=== PATIENT | female | born 1995 | race Caucasian/White ===

== ENCOUNTER 2024-03-16 20:03 | Emergency (ER) | payer BC ==
[2024-03-16 21:07] VITALS: RESP 16; TEMP 97.5
--- NOTE | 2024-03-16 22:33 | ED ---
General Adult HPI - General Chief complaint: Extremity Injury, Lower Stated complaint: R Ankle Injury Time Seen by Provider: 03/16/24 20:54 Source: patient, RN notes reviewed Mode of arrival: ambulatory Limitations: no limitations - History of Present Illness Initial comments: 29-year-old female presents to the emergency department for evaluation of right ankle injury. Patient states that she was carrying a headboard down a set of stairs. She notes that she started to lose her balance causing her to walk down the stairs faster. She states that she planted her right foot onto the ground forcefully and noticed pain in her right ankle. She states that since then it has been painful to weight-bear. She notes some swelling to the area. She denies numbness, tingling. - Related Data Home Medications Medication Instructions Recorded Confirmed medroxyPROGESTERone [Depo-Provera] 150 mg IM Q90D 05/04/16 05/04/16 Previous Rx's Medication Instructions Recorded Ibuprofen [Motrin] 600 mg PO Q6HR PRN #40 day 05/04/16 Allergies Allergy/AdvReac Type Severity Reaction Status Date / Time Sulfa (Sulfonamide Allergy Unknown Verified 03/16/24 20:34 Antibiotics) Childhood Review of Systems ROS Statement: Those systems with pertinent positive or pertinent negative responses have been documented in the HPI. ROS Other: All systems not noted in ROS Statement are negative. Past Medical History Past Medical History: No Reported History History of Any Multi-Drug Resistant Organisms: None Reported Past Surgical History: Tonsillectomy Past Psychological History: Anxiety Smoking Status: Current every day smoker Past Alcohol Use History: Occasional Past Drug Use History: Marijuana General Exam Limitations: no limitations General appearance: alert, in no apparent distress Head exam: Present: atraumatic, normocephalic, normal inspection Eye exam: Present: normal appearance, PERRL, EOMI. Absent: scleral icterus, conjunctival injection, periorbital swelling ENT exam: Present: normal exam, mucous membranes moist Cardiovascular Exam: Present: regular rate, normal rhythm, normal heart sounds. Absent: systolic murmur, diastolic murmur, rubs, gallop, clicks Extremities exam: Present: normal inspection, full ROM, tenderness (A posterior to the lateral malleolus), normal capillary refill, other (DP and PT pulses 2+). Absent: pedal edema, joint swelling, calf tenderness Neurological exam: Present: alert, oriented X3 Psychiatric exam: Present: normal affect, normal mood Skin exam: Present: warm, dry, intact, normal color. Absent: rash Course Vital Signs 03/16/24 03/16/24 20:34 22:48 Temperature 97.5 F L Pulse Rate 91 70 Respiratory 16 16 Rate Blood Pressure 146/88 115/64 O2 Sat by Pulse 99 98 Oximetry Medical Decision Making - Medical Decision Making Was pt. sent in by a medical professional or institution (, [facility], IM[employer] [facility]OCIATE, urgent care, hospital, or [place] [facility] facility...) When possible be specific @ -No Did you speak to anyone other than the patient for history (EMS, parent, family, police, friend...)? What history was obtained from this source @ -No Did you review nursing and triage notes (agree or disagree)? Why? @ -I reviewed and agree with nursing and triage notes Were old charts reviewed (outside hosp., previous admission, EMS record, old EKG, old radiological studies, urgent care reports/EKG's, [place] [facility] facility records)? Report findings @ -No old charts were reviewed Differential Diagnosis (chest pain, altered mental status, abdominal pain women, abdominal pain men, vaginal bleeding, weakness, fever, dyspnea, syncope, headache, dizziness, GI bleed, back pain, seizure, CVA, palpatations, mental health, musculoskeletal)? @ -Differential Musculoskeletal Muscular strain, contusion, ligament sprain, fracture, arthritis, septic arthritis, bursitis, cellulitis, muscle spasm, nerve compression, DVT, arterial occlusion, herpes zoster, electrolyte abnormality, tumor.... This is not meant to be in all inclusive list EKG interpreted by me (3pts min.). @ -None X-rays interpreted by me (1pt min.). @ -X-rays of the right foot and ankle show no evidence of acute fracture CT interpreted by me (1pt min.). @ -None done U/S interpreted by me (1pt. min.). @ -None done What testing was considered but not performed or refused? (CT, X-rays, U/S, labs)? Why? @ -None What meds were considered but not given or refused? Why? @ -None Did you discuss the management of the patient with other professionals (professionals i.e. , [facility], IM[employer] ASSOCIATE, lab, RT, psych nurse, social media specialist, residential support specialist, teacher, chief communications officer, immigration case worker)? Give summary @ -No Was smoking cessation discussed for >3mins.? @ -No Was critical care preformed (if so, how long)? @ -No Were there social determinants of health that impacted care today? How? (Homelessness, low income, unemployed, alcoholism, drug addiction, transportation, low edu. Level, literacy, decrease access to med. care, alf, rehab)? @ -No Was there de-escalation of care discussed even if they declined (Discuss DNR or withdrawal of care, Hospice)? DNR status @ -No What co-morbidities impacted this encounter? (DM, HTN, Smoking, COPD, CAD, Cancer, CVA, ARF, Chemo, Hep., AIDS, mental health diagnosis, sleep apnea, morbid obesity)? @ -None Was patient admitted / discharged? Hospital course, mention meds given and route, prescriptions, significant lab abnormalities, going to OR and other pertinent info. @ -Discharge. Patient presented to the emergency department for evaluation of right ankle injury. Patient underwent x-rays. There was significant delay in x-ray reports. X-ray was therefore reviewed by myself and my attending, Dr. Ayala, would not appreciate any acute fractures. Patient was placed in an Aircast and provided crutches for ankle sprain. Discussed with patient that she will be called if the radiologist read shows any significant finding. Otherwise advised to rest, ice, elevate, utilize Tylenol Motrin for discomfort. Patient is understanding agreeable with plan. X-ray report reviewed following patient discharge which shows no evidence of acute fracture. Patient stable at time of discharge. Undiagnosed new problem with uncertain prognosis? @ -No Drug Therapy requiring intensive monitoring for toxicity (Heparin, Nitro, Insulin, Cardizem)? @ -No Were any procedures done? @ -No Diagnosis/symptom? @ -Right ankle sprain Acute, or Chronic, or Acute on Chronic? @ -Acute Uncomplicated (without systemic symptoms) or Complicated (systemic symptoms)? @ -Uncomplicated Side effects of treatment? @ -No Exacerbation, Progression, or Severe Exacerbation? @ -No Poses a threat to life or bodily function? How? (Chest pain, [place], [place], pneumonia, PE, COPD, DKA, ARF, appy, cholecystitis, CVA, Diverticulitis, Homicidal, Suicidal, threat to staff... and all critical care pts) @ -No Disposition Clinical Impression: Right ankle sprain Disposition: HOME SELF-CARE Condition: Stable Instructions (If sedation given, give patient instructions): Ankle Sprain (ED) Additional Instructions: Please follow up with your primary care provider. Rest, ice, elevate the foot and ankle. Utilize Tylenol and Motrin for discomfort. Return to the emergency department for new or worsening symptoms. Is patient prescribed a controlled substance at d/c from ED?: No Referrals: Rosalio Skinner MD [Primary Care Provider] - 1-2 days
[2024-03-16 23:16] VITALS: BP 115/64; PULSE 70
--- NOTE | 2024-03-17 02:17 | XR ---
EXAMINATION TYPE: XR ankle complete RT DATE OF EXAM: 03/16/2024 9:31 PM CLINICAL INDICATION:Female, 29 years old with history of fall, pain; [facility] COMPARISON: None TECHNIQUE: 3 views right foot, 3 views right ankle FINDINGS: Osseous mineralization appears appropriate. No acute fracture lucency or significant malalignment. An kle mortise appears preserved. Talar dome looks intact. Soft tissues appear within normal limits.. No radiopaque foreign body is seen. Bones of the foot appear intact and normally aligned. No acute adenopathy is seen. No radiopaque fore ign body. IMPRESSION: No acute fracture or dislocation.
--- NOTE | 2024-03-17 02:18 | XR ---
EXAMINATION TYPE: XR foot limited RT DATE OF EXAM: 03/16/2024 9:31 PM CLINICAL INDICATION:Female, 29 years old with history of fall, pain; [facility] COMPARISON: None. TECHNIQUE: 3 views right foot, 3 views right ankle FINDINGS: Osseous mineralization appears appropriate. No acute fracture lucency or significant malalignment. An kle mortise appears preserved. Talar dome looks intact. Soft tissues appear within normal limits.. No radiopaque foreign body is seen. Bones of the foot appear intact and normally aligned. No acute adenopathy is seen. No radiopaque fore ign body. IMPRESSION: No acute fracture or dislocation.
== END 2024-03-16 22:49 | disposition home or self-care (01) ==
LOC: EC 20:03
DX: S93.401A Sprain of unspecified ligament of right ankle, initial encounter (principal); F17.200 Nicotine dependence, unspecified, uncomplicated; F12.90 Cannabis use, unspecified, uncomplicated; Z88.2 Allergy status to sulfonamides; X58.XXXA Exposure to other specified factors, initial encounter
CPT/HCPCS: 99283